=== PATIENT | male | born 1980 | race Caucasian/White ===

== ENCOUNTER 2024-11-20 09:57 | Day surgery (SDC) | payer OTHER, SELFPAY ==
[2024-11-20] VITALS (8 sets, daily range): BP systolic 106–150; BP diastolic 56–101; PULSE 49–66; RESP 12–16; TEMP 36.2–36.7; O2SAT 95–97; BMI 29.4
--- NOTE | 2024-11-20 10:11 | PRE.ANES_ITS ---
ASA Classification* ASA Classification ASA Classification: 2 Assessment & Plan Anesthesia* Anesthesia Assessment Anesthesia Assessment: Discussed sedation and/or anesthesia options, risks, benefits, and alternatives with patient/parents/legal guardian/POA. Questions invited. The patient/parents/legal guardian/POA seems to understand and agrees to proceed with anesthesia plan. Reviewed the physical assessment, medical history, allergy history and patient home medications list prior to surgery/procedure/anesthetic and documented any changes. Performed airway and anesthesia risk assessments. 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 When Was Last Pacemaker Check QUESTION #4 FULL TEXT: You/Your Family Experience fever (hyperthermia) with Anesthesia Last Oral Intake Last Oral intake: Last Oral Intake NPO since Meds taken in AM with sips of water? 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 Female No 11/17/24 10:31 HX of Motion Sickness No 11/17/24 10:31 HX of N/V After Surgery No 11/17/24 10:31 Non-Smoker No 11/17/24 10:31 Duration of Surgery greater No 11/17/24 10:31 than 60 minutes Number of Risk Factors PONV Score Height & Weight Height & Weight: Anesthesia: Height & Weight Height 5 ft 10 in 09/11/24 15:45 Respiratory Assessment Respiratory Assessment - rice field worker: Respiratory Tract Infection Hx - rice field worker Hx Respiratory Tract Infection No 11/17/24 10:31 STOP Sleep Apnea STOP Sleep Apnea - rice field worker: STOP Sleep Apnea - rice field worker Hx Hypertension No 11/17/24 10:31 Hx Sleep Apnea No 11/17/24 10:31 CPAP BIPAP Do you snore loudly (louder No 11/17/24 10:31 than talking or can be heard Do you often feel tired/ No 11/17/24 10:31 fatigued/ sleepy during daytime? Has anyone observed you stop No 11/17/24 10:31 breathing during sleep? STOP Results Negative 11/17/24 10:31 QUESTION #5 FULL TEXT : Do you snore loudly (louder than talking or can be heard through closed doors)? 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 worker Tobacco Use Smoking Status Former smoker 11/17/24 10:31 Hx Tobacco Use No 11/17/24 10:31 Years Smoking Packs Smoked per Day Smoking Cessation Date was Yes - quit smoking within 15 11/17/24 10:31 within the last 15 years years Hx Smoking Cessation Date Hx Smoking Cessation Counseling Hematologic Medial History Hematologic Hx - rice field worker: Hematologic Medical Hx - on site nurse Hx of Blood Transfusion No 11/17/24 10:31 Hx of Transfusion in last 3 No 11/17/24 10:31 Months Date of Last Transfusion (if within last 3 months) Ever experience any problems No 11/17/24 10:31 with transfusion(s)? Specify any problems Hx of Preganancy in last 3 N/A 11/17/24 10:31 Months Nurse Filling Out Transfusion [facility] 11/17/24 10:31 & Questions: Date: 11/17/24 11/17/24 10:31 Time: 10:37 11/17/24 10:31 Patient unable to answer at this time (ie. 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: /Reproductive Hx- rice field worker Hx Now Gestational Age (in weeks): EDC: Hx Hx Para Hx Section SAB PFSH Medical History Wears contact lenses Hepatitis High cholesterol Former smoker Narcolepsy Home Medications ?Medication ?Instructions ?Recorded ?Last Taken ?Type ibuprofen 200 mg capsule 200 mg PO Q6H PRN pain 08/30 Unknown History Allergy/AdvReac Type Severity Reaction Status Date / Time codeine Allergy PT UNSURE Verified 09/11/24 15:43 OF REACTION Family History Grandfather Diabetes Heart disease Lung disorder Alcohol abuse Father Glaucoma Hypertension High cholesterol Mother Hypertension Heart disease High cholesterol Surgical History History of surgery on wrist Social History Smoking Status: Former smoker how long ago did patient quit smoking: more than 30 days ago alcohol intake: current substance use type: does not use caffeine: Yes Review of Systems (Anesthesia) ROS Narrative System reviewed and no additional complaints, except as documented.
--- NOTE | 2024-11-20 10:36 | PCM.HP.STD ---
HPI - General General Date of Admission: 11/20/24 Date of Service: 11/20/24 Chief Complaint: Lower GI bleeding and GERD HPI Narrative KIRIT THOMAS, is a 44 M who presents for the evaluation of lower GI bleeding via colonoscopy. He is also been having some worsening heartburn associated with trigger foods making her heartburn worse. He will also undergo an upper endoscopy. CBC and CMP were unremarkable May 2024. - Uncle possibly with colon CA - Mom with diverticulosis - denies any weight loss - occasional HB - can triggered by diet - weight gain in the past year - smoked for 25 years - quit 2 years ago - eating smaller quantities - bleeding, can be a lot - BRB - can be triggered by eating nuts and popcorn - mild abd cramping on occasion - denies any pain PFSH Medical History Wears contact lenses Hepatitis High cholesterol Former smoker Narcolepsy Home Medications ?Medication ?Instructions ?Recorded ?Last Taken ?Type ibuprofen 200 mg capsule 200 mg PO Q6H PRN pain 08/30/24 Unknown History Allergy/AdvReac Type Severity Reaction Status Date / Time codeine Allergy PT UNSURE Verified 11/20/24 10:23 OF REACTION Family History Grandfather Diabetes Heart disease Lung disorder Alcohol abuse Father Glaucoma Hypertension High cholesterol Mother Hypertension Heart disease High cholesterol Surgical History History of surgery on wrist Social History Smoking Status: Former smoker how long ago did patient quit smoking: more than 30 days ago alcohol intake: current substance use type: does not use caffeine: Yes ROS Constitutional Constitutional: Denies fatigue, fever(s), poor appetite, weight gain or weight loss Gastrointestinal Gastrointestinal: Denies belching, bloating, change in bowel habits, change in stool character, chewing difficulty, coffee ground emesis, constipation, cramping, diarrhea, dyspepsia, dysphagia, early satiety, excessive flatus, fecal incontinence, heartburn, hematemesis, hematochezia, hemorrhoids, loose stools, melena, nausea, odynophagia, rectal bleeding, tenesmus, vomiting or weight changes Vital Signs Vital Signs Vital Signs: 11/20/24 10:25 11/20/24 10:25 Temperature 98.0 F Temperature Source Temporal Pulse Rate 66 Respiratory Rate 12 Respiratory Pattern Normal Blood Pressure 150/101 H Blood Pressure Mean 117 Blood Pressure Source Monitor Blood Pressure Position Semi-Fowlers Blood Pressure Location Left Arm Pulse Ox 97 Oxygen Delivery Method Room Air Weight Weight: 205 lb 0.478 oz Body Mass Index (BMI) 29.4 Physical Exam Const alert, oriented x3, no apparent distress and healthy appearing General Appearance: cooperative GI normal to inspection, nondistended, normoactive bowel sounds, soft to palpation, non-tender and non-distended Percussion: normal to percussion Rectal Exam: deferred Assessment & Plan Assessment/Plan (1) Rectal bleeding: PLAN: Assessment and Plan Assessment and Plan (1) Rectal bleeding: Status: Acute (2) Heartburn: Status: Acute Plan 43y/o male presents for consultation with complaints of intermittent rectal bleeding with bowel movements for many years. CBC and CMP were unremarkable May 2024. He denies any any rectal pain but does experience occasional abdominal cramping. He also complains of heartburn. He does endorse weight gain over the past year with a history of smoking. I have scheduled him for bidirectional endoscopies and recommended he start Metamucil daily. Patient Instructions: 1. Metamucil 2tsp once a day in the morning Plan Details Follow Up: 3 Months (2) Heartburn:
--- NOTE | 2024-11-20 11:15 | IMM_PTH ---
PATIENT: KIRIT THOMAS V LOC: EN U#:[id number] AGE/SX: 44/M ROOM: RE11/20/[address]: Dr. Jhoan Stevenson DO : 1980 BED: DIS: 11/20/2024 SPEC #: [id number] RECD: 11/20/24 15:09 STATUS: ANT REQ #: [id number] JEMMA: 11/20/24 11:[address]: Jhoan Stevenson DEPT: IMMUNOHISTOCHEMISTRY RECD BY: Salbador Nguyen ENTERED: 11/20/24 15:09 SP TYPE: IMMUNO OTHR DR: LUCIA RASHEED, EMR ANALYST-C Tissues: A - Gastric mucous membrane C - Esophagus, NOS Procedures: H Pylori (initial) P53 (initial) KI-67 (add) PHYSICIAN & INSTITUTION [place] [id number] SPECIMEN INFORMATION: Tissue Source: A- Gastric ulcer biopsy, C- Distal esophagus biopsy Clinical Info: Rectal bleeding and heartburn Specimen Number: [id number] Ty De Paz CPT code: 04928s0,35976 METHODOLOGY: Deparaffinized sections of prefer/formalin-fixed tissue or PAP/DQ stained slides are incubated with monoclonal/polyclonal antibodies/oligonucleotide probes. Localization is made via biotin free immunoperoxidase method. Appropriate controls are performed and reacted as expected. Results on target cell population are indicated in the following table: RESULTS: ANTIBODY / CLONE RESULT Block A H Pylori (polyclonal) negative Block C P53 (DO-7) negative (null pattern) Ki-67 (30-9) positive, low These tests were developed and their performance characteristics determined by [facility]. They may not have been cleared or approved by the U.S. Food and Drug Administration. The FDA has determined that such clearance or approval is not necessary. The above immunohistochemical/dualISH markers are ordered and reviewed by the Pathologist. INTERPRETATION: A. Gastric ulcer, biopsy: Negative for Helicobacter pylori organisms. C. Distal esophagus, biopsy: Negative for dysplasia. 11/22/2024
--- NOTE | 2024-11-20 11:15 | COLBX_PTH ---
PATIENT: KIRIT THOMAS V LOC: EN U#:[id number] AGE/SX: 44/M ROOM: RE11/20/[address]: Dr. Jhoan Stevenson DO : 1980 BED: DIS: 11/20/2024 SPEC #: [id number] RECD: 11/20/24 13:53 STATUS: ANT REBlas #: [id number] JEMMA: 11/20/24 11:[address]: Jhoan Stevenson DEPT: SURGICAL PATHOLOGY RECD BY: Michelle Rhodes ENTERED: 11/20/24 14:24 SP TYPE: COLON BX OTHR DR: LUCIA RASHEED, IP LITIGATION PARALEGAL-C Tissues: A - Gastric mucous membrane B - Duodenum, NOS C - Esophagus, NOS D - Ileum, NOS Procedures: Special Stain Group I Surgery Specimen Level IV Alcian Blue/PAS (control) HEADER OPERATION: Colonoscopy, EGD and biopsy PRE-OP DIAGNOSIS: Rectal bleeding and heartburn TISSUE SUBMITTED: A- Gastric ulcer biopsy, B- Duodenum biopsy, C- Distal esophagus biopsy,D- Terminal ileum biopsy MICROSCOPIC DIAGNOSIS A. Gastric ulcer, biopsy: Mild gastritis. See microscopic description and comment. B. Duodenum, biopsy: Fragments of duodenal mucosa with mild congestion and hemorrhage. C. 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 Chronic inflammation. Negative for dysplasia. See comment. D. Terminal ileum, biopsy: Fragments of small intestinal mucosa, no pathologic diagnosis. See comment. 11/21/2024 COMMENT A. The results of immunohistochemistry for Helicobacter pylori will be reported separately ([id number]). C. Alcian blue/PAS stain with matched control is used in the evaluation of the specimen. The specimen predominantly consists of gastric mucosa. Immunohistochemistry ([id number]) for P53 and Ki-67 will be performed, and results will be reported separately. D. Prominent lymphoid aggregates are noted. MICROSCOPIC DESCRIPTION Slides are reviewed. A. The specimen shows fragments of gastric mucosa with chronic inflammatory cell infiltrates in the lamina propria consisting of lymphocytes and plasma cells, consistent with mild chronic gastritis. Focal superficial erosion, congestion and hemorrhage are also noted. GROSS DESCRIPTION A. Received in fixative is one container labeled with the patient's name and designated Gastric ulcer biopsy. The specimen consists of one irregular fragment of light gant soft tissue that measures 0.4 x 0.4 x 0.1 cm. The specimen is totally submitted in one cassette. B. Received in fixative is one container labeled with the patient's name and designated Duodenum biopsy. The specimen consists of two irregular fragments of light gant soft tissue that in aggregate measure 0.5 x 0.4 x 0.1 cm. The specimen is totally submitted in one cassette. C. Received in fixative is one container labeled with the patient's name and designated Distal esophagus biopsy. The specimen consists of two irregular fragments of light gant soft tissue that measuring in aggregate 0.5 x 0.4 x 0.1 cm. The specimen is totally submitted in one cassette. D. Received in fixative is one container labeled with the patient's name and designated Terminal ileum biopsy. The specimen consists of two irregular fragments of light gant soft tissue that in aggregate measure 0.5 x 0.2 x 0.1 cm. The specimen is totally submitted in one cassette. 11/20/2024 TC:3 CPT:8305x4,82036
--- NOTE | 2024-11-20 12:20 | OP.EGD_ITS ---
Patient Name: Albaro Ferraro Procedure Date: 11/20/2024 11:47 AM Date of : 1980 Age: 44 Procedure: Upper GI endoscopy Indications: Epigastric abdominal pain, Heartburn Providers: Jhoan Stevenson DO Medicines: Monitored Anesthesia Care Patient Profile: This is a 44 year old male. Refer to note in patient chart for documentation of history and physical. Complications: No immediate complications. Procedure: Pre-Anesthesia Assessment: - Prior to the procedure, a History and Physical was performed, and patient medications and allergies were reviewed. The patient is competent. The risks and benefits of the procedure and the sedation options and risks were discussed with the patient. All questions were answered and informed consent was obtained. Patient identification and proposed procedure were verified by the physician in the pre-procedure area. Mental Status Examination: alert and oriented. Airway Examination: normal oropharyngeal airway and neck mobility. Respiratory Examination: clear to auscultation. CV Examination: normal. Prophylactic Antibiotics: The patient does not require prophylactic antibiotics. Prior Anticoagulants: The patient has taken no anticoagulant or antiplatelet agents except for NSAID medication. ASA Grade Assessment: II - A patient with mild systemic disease. After reviewing the risks and benefits, the patient was deemed in satisfactory condition to undergo the procedure. The anesthesia plan was to use monitored anesthesia care (MAC). Immediately prior to administration of medications, the patient was re-assessed for adequacy to receive sedatives. The heart rate, respiratory rate, oxygen saturations, blood pressure, adequacy of pulmonary ventilation, and response to care were monitored throughout the procedure. The physical status of the patient was re-assessed after the procedure. After obtaining informed consent, the endoscope was passed under direct vision. Throughout the procedure, the patient's blood pressure, pulse, and oxygen saturations were monitored continuously. The colonoscope was introduced through the mouth, and advanced to the second part of duodenum. The upper GI endoscopy was accomplished without difficulty. The patient tolerated the procedure well. Scope In: 11:59:36 AM Scope Out: 12:02:58 PM Total Procedure Duration Time 0 hours 3 minutes 22 seconds Findings: The Z-line was irregular and was found 40 cm from the incisors. Biopsies were taken with a cold forceps for histology. Verification of patient identification for the specimen was done. Estimated blood loss was minimal. Two non-bleeding linear gastric ulcers with no stigmata of bleeding were found in the gastric antrum. The largest lesion was 10 mm in largest dimension. Biopsies were taken with a cold forceps for histology. Verification of patient identification for the specimen was done. Estimated blood loss was minimal. Biopsies were taken with a cold forceps for Helicobacter pylori testing. Verification of patient identification for the specimen was done. Estimated blood loss was minimal. The second portion of the duodenum was normal. Biopsies were taken with a cold forceps for histology. Verification of patient identification for the specimen was done. Estimated blood loss was minimal. Impression: - Z-line irregular, 40 cm from the incisors. Biopsied. - Non-bleeding gastric ulcers with no stigmata of bleeding. Biopsied. - Normal second portion of the duodenum. Biopsied. Recommendation: - Patient has a contact number available for emergencies. The signs and symptoms of potential delayed complications were discussed with the patient. Return to normal activities tomorrow. Written discharge instructions were provided to the patient. - Resume previous diet. - Continue present medications. - Await pathology results. - Repeat upper endoscopy for surveillance. Procedure Code(s): --- Professional --- 59184, Esophagogastroduodenoscopy, flexible, transoral; with biopsy, single or multiple CPT copyright 2021 [employer]. All rights reserved. The codes documented in this report are preliminary and upon gas and oil checker review may be revised to meet current compliance requirements. Jhoan Stevenson DO 11/20/2024 12:19:44 PM This report has been signed electronically. Number of Addenda: 0 Note Initiated On: 11/20/2024 11:47 AM
--- NOTE | 2024-11-20 12:20 | OP.CCLET_ITS ---
11/20/2024 Jose Bhardwaj Re : Upper GI endoscopy procedure for Albaro Ferraro Dear Kendy This procedure was performed on Wednesday, November 20, 2024. My impressions and recommendations are as follows: Impressions : - Z-line irregular, 40 cm from the incisors. Biopsied. - Non-bleeding gastric ulcers with no stigmata of bleeding. Biopsied. - Normal second portion of the duodenum. Biopsied. Recommendations : - Patient has a contact number available for emergencies. The signs and symptoms of potential delayed complications were discussed with the patient. Return to normal activities tomorrow. Written discharge instructions were provided to the patient. - Resume previous diet. - Continue present medications. - Await pathology results. - Repeat upper endoscopy for surveillance. My findings are described in the full procedure note, which is enclosed. If I can be of further assistance, please feel free to contact me at . Sincerely, Jhoan Stevenson, 11/20/2024 12:19:44 PM This report has been signed electronically.
--- NOTE | 2024-11-20 12:22 | OP.COLON_ITS ---
Patient Name: Albaro Ferraro Procedure Date: 11/20/2024 12:03 PM Date of : 1980 Age: 44 Procedure: Colonoscopy Indications: Hematochezia Providers: Jhoan Stevenson DO Medicines: Monitored Anesthesia Care Patient Profile: This is a 44 year old male. Refer to note in patient chart for documentation of history and physical. Last Colonoscopy: none. The patient's first colonoscopy is today. Complications: No immediate complications. Procedure: Pre-Anesthesia Assessment: - Prior to the procedure, a History and Physical was performed, and patient medications and allergies were reviewed. The patient is competent. The risks and benefits of the procedure and the sedation options and risks were discussed with the patient. All questions were answered and informed consent was obtained. Patient identification and proposed procedure were verified by the physician in the pre-procedure area. Mental Status Examination: alert and oriented. Airway Examination: normal oropharyngeal airway and neck mobility. Respiratory Examination: clear to auscultation. CV Examination: normal. Prophylactic Antibiotics: The patient does not require prophylactic antibiotics. Prior Anticoagulants: The patient has taken no anticoagulant or antiplatelet agents except for NSAID medication. ASA Grade Assessment: II - A patient with mild systemic disease. After reviewing the risks and benefits, the patient was deemed in satisfactory condition to undergo the procedure. The anesthesia plan was to use monitored anesthesia care (MAC). Immediately prior to administration of medications, the patient was re-assessed for adequacy to receive sedatives. The heart rate, respiratory rate, oxygen saturations, blood pressure, adequacy of pulmonary ventilation, and response to care were monitored throughout the procedure. The physical status of the patient was re-assessed after the procedure. After I obtained informed consent, the scope was passed under direct vision. Throughout the procedure, the patient's blood pressure, pulse, and oxygen saturations were monitored continuously. The colonoscope was introduced through the anus and advanced to the terminal ileum. The colonoscopy was performed without difficulty. The patient tolerated the procedure well. The quality of the bowel preparation was adequate. The terminal ileum, ileocecal valve, appendiceal orifice, and rectum were photographed. Scope In: 12:04:54 PM Scope Withdrawal Time 0 hours 8 minutes 47 seconds Scope Out: 12:15:29 PM Total Procedure Duration Time 0 hours 10 minutes 35 seconds Findings: An anal fissure was found on perianal exam. Non-bleeding internal hemorrhoids were found during retroflexion. The hemorrhoids were Grade II (internal hemorrhoids that prolapse but reduce spontaneously). No other significant abnormalities were identified in a careful examination of the remainder of the colon. A few small-mouthed diverticula were found in the recto-sigmoid colon. Localized mild inflammation characterized by erosions was found in the terminal ileum. Biopsies were taken with a cold forceps for histology. Verification of patient identification for the specimen was done. Estimated blood loss was minimal. Impression: - Anal fissure found on perianal exam. - Non-bleeding internal hemorrhoids. - Diverticulosis in the recto-sigmoid colon. - Mild inflammation was found in the ileum secondary to ileitis. Biopsied. Recommendation: - Discharge patient to home. - Resume previous diet. - Continue present medications. - Await pathology results. - Repeat colonoscopy in 5 years for surveillance. Procedure Code(s): --- Professional --- 85350, Colonoscopy, flexible; with biopsy, single or multiple CPT copyright 2021 [employer]. All rights reserved. The codes documented in this report are preliminary and upon telecommunications manager review may be revised to meet current compliance requirements. Jhoan Stevenson DO 11/20/2024 12:22:24 PM This report has been signed electronically. Number of Addenda: 0 Note Initiated On: 11/20/2024 12:03 PM
--- NOTE | 2024-11-20 12:22 | OP.CCLET_ITS ---
11/20/2024 Jose Bhardwaj Re : Colonoscopy procedure for Albaro Ferraro Dear Kendy This procedure was performed on Wednesday, November 20, 2024. My impressions and recommendations are as follows: Impressions : - Anal fissure found on perianal exam. - Non-bleeding internal hemorrhoids. - Diverticulosis in the recto-sigmoid colon. - Mild inflammation was found in the ileum secondary to ileitis. Biopsied. Recommendations : - Discharge patient to home. - Resume previous diet. - Continue present medications. - Await pathology results. - Repeat colonoscopy in 5 years for surveillance. My findings are described in the full procedure note, which is enclosed. If I can be of further assistance, please feel free to contact me at . Sincerely, Jhoan Friend, 11/20/2024 12:22:24 PM This report has been signed electronically.
--- NOTE | 2024-11-20 12:24 | PCM.POST.ANE ---
Anesthesia: Postop Eval I Current Vital Signs Temperature: 97.1 F Pulse Rate: 60 Blood Pressure: 107/56 Respiratory Rate: 16 Pulse Ox: 97 Oxygen Delivery Method: Room Air Assessment Airway patent: Yes Spontaneous unlabored respirations: Yes Mental status: Asleep nausea: No Vomiting: No Anesthesia Complication: No Fluid Hydration Crystalloid volume administer (ml): 600 Total IV fluid infused: 600 Progress Note Anesthesia document: Postop Eval 1 completed: Yes
--- NOTE | 2024-11-20 12:37 | PCM.POSTANE2 ---
Anesthesia Postop Eval I Sum Postop Eval Completion status Anesthesia document: Postop Eval 1 completed: Yes Anesthesia Postop Eval I Summary Anesthesia Postop Eval I Summary: Anesthesia Postop Eval I: Assessment Summary Airway patent Yes 11/20/24 12:24 [email or web address] Spontaneous unlabored Yes 11/20/24 12:24 [email or web address] respirations Mental status Asleep 11/20/24 12:24 [email or web address] nausea No 11/20/24 12:24 [email or web address] Vomiting No 11/20/24 12:24 [email or web address] Anesthesia Postop Eval I: Fluid Summary Crystalloid volume administer 600 11/20/24 12:24 [email or web address] (ml) Colloids volume administered ( ml) Blood Product volume administered (ml) Total IV fluid infused 600 11/20/24 12:24 [email or web address] Anesthesia Postop Eval I: Summary Notes Anesthesia Complication No 11/20/24 12:24 [email or web address] Anesthesia Complication Comment: Post-operative progress note Anesthesia: Postop Eval II Evaluation Mental status: Awake Pain Level: 0 nausea: No Vomiting: No
== END 2024-11-20 13:22 | disposition home or self-care (01) ==
LOC: EN 10:01 → AC 10:04
PROVIDERS: PCP Nurse Practitioner Family; Referring Provider Nurse Practitioner Family; Visit Provider Internal Medicine Gastroenterology
PROC: 0DJD8ZZ Inspection of Lower Intestinal Tract, Via Natural or Artificial Opening Endoscopic (ICD-10-PCS; CPT 45378; principal; 2024-11-20 11:10)
DX: K22.70 Barrett's esophagus without dysplasia (principal); K62.5 Hemorrhage of anus and rectum; Z87.891 Personal history of nicotine dependence; K25.9 Gastric ulcer, unspecified as acute or chronic, without hemorrhage or perforation; K64.1 Second degree hemorrhoids; K60.2 Anal fissure, unspecified; K21.00 Gastro-esophageal reflux disease with esophagitis, without bleeding; K57.90 Diverticulosis of intestine, part unspecified, without perforation or abscess without bleeding; E78.00 Pure hypercholesterolemia, unspecified; K52.9 Noninfective gastroenteritis and colitis, unspecified; K29.70 Gastritis, unspecified, without bleeding
CPT/HCPCS: 43239; 45380; 88305; 88312; 88341; 88342; A4216; J2405